=== PATIENT | female | born 1975 | race African-American/Black ===

== ENCOUNTER 2016-08-27 14:05 | Outpatient (CLI) | payer MEDICAID | END 2016-08-27 23:59 | disposition home or self-care (01) | DX: E11.9 Type 2 diabetes mellitus without complications (principal) ==

== ENCOUNTER 2017-01-19 21:21 | Outpatient (CLI) | payer MEDICAID | END 2017-01-19 21:22 | disposition short-term general hospital (02) | LOC: EMS 21:21 | PROVIDERS: ATTEND Surgery | DX: R51 Headache (principal); R53.1 Weakness | CPT/HCPCS: A0425; A0429 ==

== ENCOUNTER 2018-06-24 14:41 | Outpatient (CLI) | payer MEDICAID | END 2018-06-24 14:42 | disposition critical access hospital (66) | LOC: EMS 14:41 | PROVIDERS: ATTEND Surgery | DX: R10.32 Left lower quadrant pain (principal) | CPT/HCPCS: A0425; A0429 ==

== ENCOUNTER 2018-06-24 15:10 | Emergency (ER) | payer MEDICAID ==
[2018-06-24] MEDS ORDERED: ONDANSETRON 4 MG/2 ML VIAL IVP STA ×2 (15:59→18:31)
[2018-06-24] MEDS ORDERED: SODIUM CHLORIDE 0.9% 1,000 ML IV ONE (15:59)
[2018-06-24] MEDS ORDERED: HYDROmorphone 1 MG/ML CARPUJECT IVP STA ×2 (15:59→18:07)
[2018-06-24] MEDS ORDERED: SALINE ENEMA 133 ML BOTTLE RC STA (15:59)
--- NOTE | 2018-06-24 16:04 | ED Physician Documentation ---
PD HPI ABD PAIN - Stated complaint Stated Complaint: LLQ PX - Chief complaint Chief Complaint: Abd Pain - History obtained from History obtained from: Patient, Family - History of Present Illness Timing - onset: How many weeks ago (2) Timing - duration: Weeks (2) Timing - details: Abrupt onset, Still present, Waxing and waning Quality: Sharp, Pain Location: LUQ, LLQ Radiation: Left flank Improved by: Laying still Worsened by: Moving, Position, Palpation Associated symptoms: Nausea, Vomiting, Constipation, Hematuria, Loss of appetite Similar symptoms before: Diagnosis (kidney stone) Recently seen: Emergency Dept - Additional information Additional information: 43-year-old female with a 2-week history of left flank pain had a dramatic increase in her symptoms and was seen in the emergency department on 16 June at [facility] and diagnosed with a kidney stone and placed on medications. She did get some relief of her pain there and she is now developed return and worsening of her pain over the past 3 days. Along with the pain the patient has some nausea and she is constipated. She complains of 2 separate pains one in the left flank where she has had this stone and the other in the left lower quadrant where she feels that she is not able to get stool out that is ready to come out. She is noting some spasms in her rectum. She is very uncomfortable crying in pain. She was started on some tamsulosin and oxycodone as well as cephalexin. She did not have imaging procedures done in the emergency department. Review of Systems Constitutional: reports: Fever, Chills, Myalgias, Fatigue Eyes: denies: Decreased vision Ears: denies: Ear pain Nose: denies: Rhinorrhea / runny nose, Congestion Throat: denies: Sore throat Respiratory: denies: Cough GI: reports: Abdominal Pain, Nausea, Vomiting, Constipation : reports: Hematuria. denies: Dysuria, Frequency Skin: denies: Rash, Lesions Musculoskeletal: reports: Back pain. denies: Neck pain Neurologic: denies: Generalized weakness, Focal weakness, Numbness PD PAST MEDICAL HISTORY - Past Medical History Cardiovascular: Hypertension Respiratory: None Endocrine/Autoimmune: Type 2 diabetes GI: None FILM READER: None : None HEENT: None Psych: None Musculoskeletal: None Derm: None - Past Surgical History Past Surgical History: Yes General: Cholecystectomy - Present Medications Home Medications: Ambulatory Orders Medication Instructions Recorded Confirmed Hydrochlorothiazide 25 mg PO DAILY 09/17/12 02/29/16 Insulin Aspart [Novolog] 1 unit SQ AC 09/17/12 02/29/16 Insulin Glargine,Hum.rec.anlog 38 unit SQ HS 09/17/12 02/29/16 [Lantus Solostar] Lisinopril 5 mg PO DAILY 01/09/14 02/29/16 Cyclobenzaprine [Flexeril] 10 mg PO TID PRN #20 tablet 02/29/16 oxyCODONE/ACET 5/325 [Percocet 5 1 - 2 each PO Q6H PRN #14 tablet 02/29/16 mg/325 mg] Cephalexin [Keflex] 500 mg PO QID 06/24/18 06/24/18 Ondansetron [Ondansetron Odt] 4 mg PO TID 06/24/18 06/24/18 Tamsulosin [Flomax] 0.4 mg PO DAILY 06/24/18 06/24/18 oxyCODONE [Roxicodone] 1 tab PO Q4HR PRN 06/24/18 06/24/18 - Allergies Allergies/Adverse Reactions: Allergies Allergy/AdvReac Type Severity Reaction Status Date / Time acetaminophen [From Vicodin] Allergy Itching Verified 06/24/18 15:25 hydrocodone bitartrate * Allergy Itching Verified 06/24/18 15:25 [From Vicodin] - Social History Does the pt smoke?: No Smoking Status: Never smoker Does the pt drink ETOH?: No Does the pt have substance abuse?: No - Immunizations Immunizations are current?: No Immunizations: TDAP >10years/unknown - POLST Patient has POLST: No PD ED PE NORMAL - Vitals Vital signs reviewed: Yes (tachy and hypertensive ) - General General: Alert and oriented X 3, Well developed/nourished, Other (The patient is writhing in pain with tears to her eyes, she is clutching her left lower quadrant laying on her right side.) - HEENT HEENT: Atraumatic, PERRL, EOMI - Neck Neck: Supple, no meningeal sign - Cardiac Cardiac: No murmur, Other (tachy ) - Respiratory Respiratory: No respiratory distress, Clear bilaterally - Abdomen Abdomen: Soft, Other (There is left lower quadrant tenderness and the patient is not allowing exam. 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, No motor deficit, No sensory deficit, Normal speech Eye Opening: Spontaneous Motor: Obeys Commands Verbal: Oriented GCS Score: 15 - Psych Psych: Normal mood, Normal affect Results - Vitals Vitals: Vital Signs - 24 hr 06/24/18 06/24/18 06/24/18 15:21 17:30 19:35 Temperature 37.4 C 36.2 C L Heart Rate 126 H 115 H 105 H Respiratory 16 18 12 Rate Blood Pressure 188/103 H 178/100 H 136/94 H O2 Saturation 100 100 100 06/24/18 20:26 Temperature 36.9 C Heart Rate 96 Respiratory 14 Rate Blood Pressure 161/96 H O2 Saturation 100 Oxygen O2 Source Room air - Labs Labs: Laboratory Tests 06/24/18 06/24/18 06/24/18 16:10 16:10 16:10 WBC 16.2 H RBC 3.21 L Hgb 7.1 L Hct 22.8 L MCV 71.1 L MCH 22.2 L MCHC 31.3 L RDW 17.4 H Plt Count 487 H MPV 7.5 L Neut # (Auto) 14.5 H Lymph # (Auto) 1.3 L [place] # (Auto) 0.4 Eos # (Auto) 0.0 Baso # (Auto) 0.1 Absolute Nucleated RBC 0.00 Nucleated RBC % 0.0 Sodium 138 Potassium 3.8 Chloride 104 Carbon Dioxide 23 Anion Gap 11.0 BUN 12 Creatinine 1.1 H Estimated GFR (MDRD) 66 L Glucose 194 H Calcium 9.1 Total Bilirubin 0.3 AST 21 ALT < 10 L Alkaline Phosphatase 59 Troponin I < 0.04 Total Protein 7.6 Albumin 3.9 Globulin 3.7 Albumin/Globulin Ratio 1.1 Lipase 30 Urine Color Urine Clarity Urine pH Ur Specific [place] Urine Protein Urine Glucose (UA) Urine Ketones Urine Occult Blood Urine Nitrite Urine Bilirubin Urine Urobilinogen Ur Leukocyte Esterase Urine RBC Urine WBC Ur Squamous Epith Cells Urine Bacteria Ur Microscopic Review Urine Culture Comments Blood Type Antibody Screen Crossmatch IS Only 06/24/18 06/24/18 17:00 19:38 WBC RBC Hgb Hct MCV MCH MCHC RDW Plt Count MPV Neut # (Auto) Lymph # (Auto) [place] # (Auto) Eos # (Auto) Baso # (Auto) Absolute Nucleated RBC Nucleated RBC % Sodium Potassium Chloride Carbon Dioxide Anion Gap BUN Creatinine Estimated GFR (MDRD) Glucose Calcium Total Bilirubin AST ALT Alkaline Phosphatase Troponin I Total Protein Albumin Globulin Albumin/Globulin Ratio Lipase Urine Color RED/BLOODY Urine Clarity BLOODY Urine pH 6.0 Ur Specific [place] 1.020 Urine Protein 100 H Urine Glucose (UA) 100 H Urine Ketones NEGATIVE Urine Occult Blood LARGE H Urine Nitrite NEGATIVE Urine Bilirubin NEGATIVE Urine Urobilinogen 0.2 (NORMAL) Ur Leukocyte Esterase TRACE H Urine RBC TNTC H Urine WBC 4-5 Ur Squamous Epith Cells NONE SEEN Urine Bacteria None Seen Ur Microscopic Review INDICATED Urine Culture Comments INDICATED Blood Type A POSITIVE Antibody Screen NEGATIVE Crossmatch IS Only See Detail - Rads (name of study) CT abdomen pel withou Radiology: Prelim report reviewed (Impression: Redemonstrated polycystic kidney disease. There is increased internal hyperdense material in the dominant mid left renal cyst which may represent blood or proteinaceous products. No hydronephrosis or nephrolithiasis. Stool distended rectum with diffuse circumferential rectal wall thickening these changes can be seen with stercoral colitis with other infectious/inflammatory proctitis not excluded. Nonobstructive bowel gas pattern. Normal appendix. Probable right ovarian cyst, which could be further evaluated pelvic ultrasound.), EMP read indepedently, See rad report Procedures - Bedside sono Bedside sono by EMP: With the use of bedside ultrasound the left kidney is imaged there is obvious hydronephrosis (not hydro but cysts) and the kidney is sonographically only mildly tender. PD MEDICAL DECISION MAKING - ED course Complexity details: reviewed results, re-evaluated patient, considered differential, d/w patient, d/w family ED course: 43-year-old female with a history of polycystic kidney disease has developed flank pain and hematuria about 2 weeks ago and she has had continued bleeding since that time. She has been in to see the emergency department at [facility] 8 days ago at that point she was diagnosed with a kidney stone and placed on antibiotic and pain medication. She continues to have bleeding and pain and now she has severe rectal pain as well from constipation. Her hct has dropped from 26.3/8.3 to 22.1/7.1 today. Here in the emergency department the patient is administered Dilaudid and Zofran with minimal relief of her pain. She is administered 30 mg of Toradol which does seem to help with the pain and she is having a lot of rectal pain as well. An attempt at disimpaction is made which is very painful for the patient and she is very uncooperative. The patient is at the transfusion threshold, she is continuing to bleed and has pain management issues. I have consulted Dr. Hair (nephrology on-call for Dr. Goodwin) and he recommends supportive management of the patient's condition to include pain medication blood and treatment for potential infection which is always a question in these cases. He indicates that intervention would need to be done if she were to continue to bleed and require a second transfusion and the timing of this would be on the order of weeks. I contacted our hospitalist for admission of the patient to the hospital for observation and transfusion and he recommended the transfusion be done in the emergency department. Dr. Almaz Chaney hospitalist at [facility] is contacted in the case and she graciously agrees to accept the patient in transfer. Departure - Departure Disposition: 02 Transfer Acute Care Hosp Clinical Impression: Polycystic kidney disease, Ruptured cyst of kidney, Acute blood loss anemia Constipation Qualifiers: Constipation type: drug induced constipation Qualified Code(s): K59.03 - Drug induced constipation
[2018-06-24 16:26] LABS: BASOPHILS # (AUTO) 0.1 10^3/uL (0.0-0.1); BASOPHILS % (AUTO) 0.3 %; HGB - HEMOGLOBIN 7.1 g/dL (12.0-16.0); LYMPHOCYTES # (AUTO) 1.3 10^3/uL (1.5-3.5); LYMPHOCYTES % (AUTO) 7.9 %; MEAN CORPUSCULAR HEMOGLOBIN 22.2 pg (27.0-31.0); MEAN CORPUSCULAR HGB CONC 31.3 g/dL (32.0-36.0); MEAN CORPUSCULAR VOLUME 71.1 fL (81.0-99.0); MEAN PLATELET VOLUME 7.5 fL (7.9-10.8); MONOCYTES # (AUTO) 0.4 10^3/uL (0.0-1.0); MONOCYTES % (AUTO) 2.5 %; NEUTROPHILS # (AUTO) 14.5 10^3/uL (1.5-6.6); NEUTROPHILS % (AUTO) 89.3 %; PLT - PLATELET COUNT 487 10^3/uL (130-450); RED BLOOD COUNT 3.21 10^6/uL (4.20-5.40); RED CELL DISTRIBUTION WIDTH 17.4 % (12.0-15.0); WHITE BLOOD COUNT 16.2 x10^3/uL (4.8-10.8)
[2018-06-24 16:31] LABS: ALBUMIN 3.9 g/dL (3.2-5.5); ALBUMIN/GLOBULIN RATIO 1.1 (1.0-2.2); ALKALINE PHOSPHATASE 59 IU/L (42-121); ALT ALANINE AMINOTRANSFERASE < 10 IU/L (10-60); AST ASPARTATE AMINOTRANSFERASE 21 IU/L (10-42); BILIRUBIN,TOTAL 0.3 mg/dL (0.2-1.0); BUN - BLOOD UREA NITROGEN 12 mg/dL (6-20); CALCIUM 9.1 mg/dL (8.5-10.3); CARBON DIOXIDE - CO2 23 mmol/L (21-32); CHLORIDE 104 mmol/L (101-111); CREATININE 1.1 mg/dL (0.4-1.0); GFR - MDRD 66 (>89); GLUCOSE 194 mg/dL (70-100); LIPASE 30 U/L (22-51); SODIUM 138 mmol/L (135-145); TOTAL PROTEIN 7.6 g/dL (6.7-8.2)
[2018-06-24] MEDS ORDERED: KETOROLAC 30 MG/ML VIAL IVP STA (16:46)
--- NOTE | 2018-06-24 16:57 | CT Report ---
Reason: L flank pain constipation Procedure Date: 06/24/2018 Accession Number: [id number] / [id number] Procedure: CT - Abdomen/Pelvis W/O CPT Code: FULL RESULT: EXAM: CT ABDOMEN AND PELVIS (CT KUB) EXAM DATE: 06/24/2018 04:27 PM. CLINICAL HISTORY: L flank pain constipation. COMPARISONS: ABDOMEN/PELVIS W/O 07/30/2015 12:07 AM. TECHNIQUE: Routine axial helical CT imaging was performed through the abdomen and pelvis without IV contrast. Reconstructions: Coronal and sagittal. In accordance with CT protocol optimization, one or more of the following dose reduction techniques were utilized for this exam: automated exposure control, adjustment of mA and/or KV based on patient size, or use of iterative reconstructive technique. FINDINGS: Lung Bases: Unremarkable. Right Kidney/Ureter: No hydronephrosis or nephrolithiasis. Redemonstrated innumerable cysts, which have a similar appearance compared to the prior exam. Left Kidney/Ureter: No hydronephrosis or nephrolithiasis. Redemonstrated innumerable cysts. There is a dominant exophytic cyst in the interpolar region measuring approximately 6.4 x 4.5 cm, which has increased internal hyperdense material compared to the prior exam. Remaining cysts have a similar appearance. Other Solid Organs: Noncontrast images of the solid organs are unremarkable. Gallbladder/Bile Ducts: The gallbladder is surgically absent. Peritoneal Cavity: Nonobstructive bowel gas pattern. The appendix is normal. Moderate to large volumes stool throughout the colon and rectum. The rectum is distended with formed stool measuring approximately 7.07 m in transverse diameter. The rectal wall is diffusely thickened. Pelvic Organs: There is a hypodense mass in the right adnexa measuring 3.6 x 3.1 cm, which may represent a right ovarian cyst. The uterus and left ovary appear unremarkable by nonenhanced CT. The urinary bladder is unremarkable. Vasculature: Unremarkable. Other: None. IMPRESSION: Redemonstrated polycystic kidney disease. There is increased internal hyperdense material in the dominant mid left renal cyst, which may represent blood or proteinaceous products. No hydronephrosis or nephrolithiasis. Stool distended rectum with diffuse circumferential rectal wall thickening. These changes can be seen with stercoral colitis with other infectious/inflammatory proctitis not excluded. Nonobstructive bowel gas pattern. Normal appendix. Probable right ovarian cyst, which could be further evaluated with pelvic ultrasound. [facility]
[2018-06-24 17:23] LABS: BILIRUBIN,URINE NEGATIVE (NEGATIVE); GLUCOSE, URINE (UA) 100 mg/dL (NEGATIVE); KETONES,URINE (UA) NEGATIVE (NEGATIVE); LEUKOCYTE ESTERASE, URINE TRACE (NEGATIVE); NITRITE,URINE NEGATIVE (NEGATIVE); OCCULT BLOOD,URINE LARGE (NEGATIVE); PROTEIN,URINE 100 mg/dL (NEGATIVE); UROBILINOGEN,URINE 0.2 (NORMAL) E.U./dL (NORMAL)
[2018-06-24 17:25] LABS: BACTERIA,URINE None Seen /HPF (None Seen); CLARITY,URINE BLOODY (CLEAR); RBC,URINE TNTC /HPF (0-5); SQUAMOUS EPITHELIAL CELL,UR NONE SEEN (<= Few)
[2018-06-24] MEDS ORDERED: LORazepam 2 MG/ML VIAL IVP STA (18:07)
[2018-06-24] MEDS ORDERED: LIDOCAINE 2% URO-JET 5 ML SYRINGE UR STA (18:49)
[2018-06-24 22:43] VITALS: BP 146/90
== END 2018-06-24 22:37 | disposition short-term general hospital (02) ==
LOC: EDUNIT# → ED 15:10
DX: N13.30 Unspecified hydronephrosis (principal); N28.1 Cyst of kidney, acquired; D62 Acute posthemorrhagic anemia; I10 Essential (primary) hypertension; E11.9 Type 2 diabetes mellitus without complications; Z79.4 Long term (current) use of insulin
CPT/HCPCS: 36415; 36430; 74176; 80053; 81001; 83690; 84484; 85025; 86850; 86900; 86901; 86920; 87086; 96361; 96374; 96375; 96376; 99284; 99285; A9270; J1170; J2060; P9016; 81003